=== PATIENT | female | born 1980 | race Caucasian/White ===

== ENCOUNTER 2021-08-23 14:19 | Emergency (ER) | payer OTHER, SELFPAY ==
[2021-08-23 14:23] VITALS: BP 110/73; PULSE 102; RESP 15; TEMP 36.4; O2SAT 97; BMI 35.2
--- NOTE | 2021-08-23 14:43 | DI.US.S_ITS ---
PROCEDURE: US PERIPH VENOUS LOW EXTREM LT INDICATIONS: PAIN; HX DVT TECHNIQUE: Real-time imaging, as well as color and pulse Doppler interrogation, were performed of the lower extremity deep veins from the inguinal ligament to the popliteal fossa. COMPARISON: None. FINDINGS: The common femoral, femoral and popliteal veins are normally compressible, and free of intraluminal thrombus. Color and pulse Doppler demonstrate normal phasic intraluminal flow. There is normal augmentation response to distal compression maneuver. IMPRESSION: No left lower extremity DVT. Dictated by: Juan Alberto Marrero M.D. on 08/23/2021 at 15:15 Approved by: Juan Alberto Marrero M.D. on 08/23/2021 at 15:16
[2021-08-23] MEDS: GABAPENTIN 300 MG CAPSULE PO (17:55)
[2021-08-23] MEDS: KETOROLAC 30 MG/ML VIAL 15 MG IM (17:55)
--- NOTE | 2021-08-23 17:55 | ED.EXTPRO ---
HPI - Extremity Problem <Ozzy Marrero PA-C - Last Filed: 08/23/21 19:49> General Chief complaint: Extremity Problem,Nontraumatic Stated complaint: Throbbing down left leg. hx back injury Time Seen by Provider: 08/23/21 16:54 Source: patient Mode of arrival: Ambulatory History of Present Illness HPI Narrative: Patient is a 41-year-old female presenting to the emergency department today for an evaluation of left lower extremity pain and low back pain. Patient states that she injured her back approximately 1 month ago while bending over and attempting to lift up a box. She states that her back ?went out? and has experienced 3 weeks of back pain since then. She states that approximately 1 week ago the pain started to travel down her left leg, noting that it is been ?throbbing?. She explains that she is currently in the process moving from [place] and has been driving ?for the last 20 hours?. She denies fever, chills, chest pain, cough, shortness of breath, nausea, vomiting, diarrhea, constipation, abdominal pain, dysuria, hematuria, fecal incontinence, saddle anesthesia, or any other concerning symptoms. No further concerns were voiced this time. Related Data Previous Rx's Medication Instructions Recorded rivaroxaban 20 mg tablet (Xarelto) See Rx Instructions .ROUTE 11/19/20 .COMPLEX #90 tab pantoprazole 40 mg tablet,delayed See Rx Instructions .ROUTE 12/08/20 release .COMPLEX #90 tab baclofen 10 mg tablet 10 mg PO TID #30 tab 08/23/21 baclofen 10 mg tablet 10 mg PO TID #30 tab 08/23/21 gabapentin 300 mg capsule 300 mg PO BEDTIME #20 cap 08/23/21 gabapentin 300 mg capsule 300 mg PO BEDTIME #20 cap 08/23/21 Allergies Allergy/AdvReac Type Severity Reaction Status Date / Time No Known Drug Allergies Allergy Verified 08/23/21 14:33 Review of Systems <Ozzy Marrero PA-C - Last Filed: 08/23/21 19:49> Constitutional Constitutional: Denies chills, Denies fatigue, Denies fever(s), Denies frequent falls, Denies lethargy and Denies weakness Eyes Eyes: Denies loss of vision ENT Ears, Nose, Mouth, and Throat: Denies dizziness and Denies neck pain Cardiovascular Cardiovascular: Denies chest pain, Denies irregular heart rhythm, Denies lightheadedness, Denies palpitations, Denies dyspnea, Denies dyspnea on exertion and Denies orthopnea Respiratory Respiratory: Denies cough, Denies dyspnea, Denies dyspnea on exertion and Denies wheezing Gastrointestinal Gastrointestinal: Denies abdominal pain, Denies change in bowel habits, Denies diarrhea, Denies nausea and Denies vomiting Genitourinary Genitourinary: Denies hematuria, Denies flank pain, Denies urinary incontinence and Denies urinary urgency Musculoskeletal Musculoskeletal: Reports back pain, Denies muscle weakness, Denies neck pain, Denies numbness, Denies tingling and Reports other (Left leg pain) Integumentary/Breasts Skin/Breast: Denies pruritus, Denies erythema, Denies rash and Denies wounds Neurologic Neurologic: Denies behavioral changes, Denies confusion, Denies dizziness, Denies frequent falls, Denies loss of vision, Denies numbness, Denies tingling and Denies weakness Psychiatric Psychiatric: Denies behavioral changes and Denies confusion Endocrine Endocrine: Denies fatigue and Denies palpitations Allergic/Immunologic Allergic/Immunologic: Denies wheezing Patient History <Ozzy Marrero PA-C - Last Filed: 08/23/21 19:49> Medical History BMI 34.0-34.9,adult History of DVT in adulthood Menorrhagia with regular cycle Weight loss counseling, encounter for Surgical History History of weight loss surgery Social History Smoking Status: Never smoker alcohol intake: current (2 times a year) substance use type: does not use Smoking Status: Never smoker alcohol intake frequency: holidays/special occasions only Substance Use Type: does not use Exam <Ozzy Marrero PA-C - Last Filed: 08/23/21 19:49> Narrative Exam Narrative: GENERAL: 41 year old patient appears stated age. Well-developed patient, in no acute distress. HEAD: Atraumatic. Normocephalic. EYES: Pupils equal round and reactive. Extraocular motions intact. No scleral icterus. No injection or drainage. ENT: Nose without bleeding, purulent drainage. Throat without erythema, tonsillar hypertrophy or exudate. Airway patent. NECK: Trachea midline. Non tender CARDIOVASCULAR: Regular rate and rhythm without murmurs, gallops, or rubs. RESPIRATORY: Clear to auscultation. Breath sounds equal bilaterally. No wheezes, rales, or rhonchi. GASTROINTESTINAL: Abdomen soft, non-tender, nondistended. Normal rectal tone on exam. EXTREMITIES: No edema or joint tenderness. Tenderness to palpation appreciated along the lateral aspect of the left leg with no gross deformity or overlying ecchymosis or erythema. Negative straight leg raise bilaterally. BACK: Nontender without deformity or crepitance. No flank tenderness. NEURO: AOx3. Good sensation to light touch appreciated throughout the bilateral lower extremities. Gross motor function intact throughout the bilateral lower extremities. No apparent saddle anesthesia appreciated. SKIN: No rash or erythema of visible areas Initial Vital Signs Initial Vital Signs: Vital Signs Temperature 97.5 F L 08/23/21 14:23 Pulse Rate 102 H 08/23/21 14:23 Respiratory Rate 15 08/23/21 14:23 Blood Pressure 110/73 08/23/21 14:23 Pulse Oximetry 97 08/23/21 14:23 <Susana Pratt DO - Last Filed: 08/24/21 02:38> Initial Vital Signs Initial Vital Signs: Vital Signs Temperature 97.5 F L 08/23/21 14:23 Pulse Rate 102 H 08/23/21 14:23 Respiratory Rate 15 08/23/21 14:23 Blood Pressure 110/73 08/23/21 14:23 Pulse Oximetry 97 08/23/21 14:23 Course <Ozzy Marrero PA-C - Last Filed: 08/23/21 19:49> Course Course Narrative: Intramuscular Toradol and PO gabapentin administered. Rectal tone checked without any signs of abnormality, Lesley RN chaperoned. Orders Ordered: Discontinued Medications Gabapentin (Gabapentin 300 Mg Capsule) 300 mg PO NOW ONE Stop: 08/23/21 17:51 Last Admin: 08/23/21 17:55 Dose: 300 mg Documented by: TOM Haloperidol (Haloperidol 5 Mg/Ml Vial) 10 mg IM NOW ONE Stop: 08/23/21 18:29 Last Admin: 08/23/21 18:40 Dose: Not Given Documented by: TOM Ketorolac Tromethamine (Ketorolac 30 Mg/Ml Vial) 15 mg IM NOW ONE Stop: 08/23/21 17:51 Last Admin: 08/23/21 17:55 Dose: 15 mg Documented by: TOM Vital Signs Vital signs: Vital Signs - 8 hr 08/23/21 14:23 08/23/21 17:59 Temperature 97.5 F L Pulse Rate 102 H 78 Respiratory Rate 15 16 Blood Pressure 110/73 113/54 L Pulse Oximetry 97 99 <Susana Pratt DO - Last Filed: 08/24/21 02:38> Orders Ordered: Discontinued Medications Gabapentin (Gabapentin 300 Mg Capsule) 300 mg PO NOW ONE Stop: 08/23/21 17:51 Last Admin: 08/23/21 17:55 Dose: 300 mg Documented by: TOM Haloperidol (Haloperidol 5 Mg/Ml Vial) 10 mg IM NOW ONE Stop: 08/23/21 18:29 Last Admin: 08/23/21 18:40 Dose: Not Given Documented by: TOM Ketorolac Tromethamine (Ketorolac 30 Mg/Ml Vial) 15 mg IM NOW ONE Stop: 08/23/21 17:51 Last Admin: 08/23/21 17:55 Dose: 15 mg Documented by: TOM Vital Signs Vital signs: Vital Signs - 8 hr 08/23/21 14:23 08/23/21 17:59 Temperature 97.5 F L Pulse Rate 102 H 78 Respiratory Rate 15 16 Blood Pressure 110/73 113/54 L Pulse Oximetry 97 99 MDM - Extremity (Nontraumatic) <Ozzy Marrero PA-C - Last Filed: 08/23/21 19:49> MDM Narrative Medical decision making narrative: Differential diagnosis to consider but not limited to lumbar radiculopathy versus spinal stenosis versus disc herniation versus disc protrusion versus cauda equina syndrome. Patient states that she experience 1 episode urinary incontinence but has not experience further episodes since that time. Discussed possibility of obtaining an MRI or checking for rectal tone and patient states that she would be comfortable checking rectal tone at this time. No abnormalities were identified on digital rectal examination. I urged the patient to return to the emergency department if she experiences further episodes of urinary incontinence, or she experiences fecal incontinence. Patient expresses understanding and agrees to plan. She states that this time she is comfortable being discharged home a is stable for discharge. Strict return precautions were discussed with the patient prior to discharge. Discharge Plan Departure Patient Disposition: Home Clinical Impression: Low back pain, Acute left lumbar radiculopathy Instructions: DI for Lumbar Radiculopathy Activity Restrictions/Additional Instructions: *You have been diagnosed with low back pain, left lumbar radiculopathy *What to do: *Please continue to take your regular medications as directed. [X] New medication prescriptions sent to your pharmacy: [facility] [place] - Baclofen, Gabapentin, Naproxen [ ] New medication written as a paper prescription [ ] No new medications given You were evaluated in the emergency department today for left lower extremity pain and low back pain. Physical examination performed today was reassuring. I prescribed you a short course of medications to help alleviate your pain. These prescriptions have been sent electronically to your preferred pharmacy ([facility] in [place]). I recommend following up with the primary care provider within the next 2-3 days for further evaluation. Please do not hesitate to return to the emergency department if you experience fever, worsening pain, loss of bowel or bladder control, numbness along the inner thighs, or any other concerning symptoms. The symptoms would indicate a surgical emergency and would warrant emergent intervention. *Please follow up with your primary care provider in 2-3 days, call for an appointment. Let them know you were seen in the Emergency Department and that we ask that you be seen in follow up. We will electronically transmit a record of today's note if your PCP is in our system *If you do not have a primary care provider please contact the [facility] Resource line at [phone]. They will ask some questions about your medical history and help get you set up with a doctor in the community. *Return to Emergency Department if you should have any new, worsening or concerning symptoms, such as fever greater than 101 F, shaking chills, worsening pain, persistent vomiting or other bothersome symptoms. Prescriptions: New gabapentin 300 mg capsule 300 mg PO BEDTIME Qty: 20 0RF baclofen 10 mg tablet 10 mg PO TID Qty: 30 0RF gabapentin 300 mg capsule 300 mg PO BEDTIME Qty: 20 0RF baclofen 10 mg tablet 10 mg PO TID Qty: 30 0RF No Action rivaroxaban [Xarelto] 20 mg tablet See Rx Instructions .ROUTE .COMPLEX Qty: 90 0RF Dose Instruction: TAKE 1 TABLET BY MOUTH EVERY DAY MUST ADMINISTER WITH EVENING MEAL Rx Instructions: TAKE 1 TABLET BY MOUTH EVERY DAY MUST ADMINISTER WITH EVENING MEAL pantoprazole 40 mg tablet,delayed release (DR/EC) See Rx Instructions .ROUTE .COMPLEX Qty: 90 0RF Dose Instruction: TAKE 1 TABLET BY MOUTH EVERY DAY Rx Instructions: TAKE 1 TABLET BY MOUTH EVERY DAY Referrals: Ibrahima Gonzalez DO [Primary Care Provider] - <Susana Pratt DO - Last Filed: 08/24/21 02:38> Cosign ED Attending Cosignature Attestation: I was immediately available in the department for consultation. Documentation has been reviewed.
[2021-08-23 17:59] VITALS: BP 113/54; PULSE 78; RESP 16; O2SAT 99
--- NOTE | 2021-08-23 18:43 | PC.NURSE ---
standby assist for rectal exam
== END 2021-08-23 18:45 | disposition home or self-care (01) ==
PROVIDERS: Emergency Provider Physician Assistant; PCP Family Medicine
DX: M54.50 Low back pain, unspecified (principal); M54.16 Radiculopathy, lumbar region
CPT/HCPCS: 93971; 96372; 99283; J1885